=== PATIENT | female | born 1945 | race Caucasian/White ===

== ENCOUNTER 2017-03-01 13:40 | Emergency (ER) | payer MEDICARE, OTHER ==
[2017-03-01 15:22] LABS: ALKALINE PHOSPHATASE 119 U/L (50-136); ALT/SGPT 17 U/L (3.5-33.9); AST/SGOT 28 U/L (7.04-26.96); BILIRUBIN,TOTAL 0.41 mg/dL (0.0-1.0); BLOOD UREA NITROGEN 10 mg/dL (7-18); CALCIUM 9.1 mg/dL (8.7-10.7); CARBON DIOXIDE 24 mmol/L (21-32); CREATININE 0.6 mg/dL (0.6-1.3); GLUCOSE,RANDOM 172 mg/dL (70-99); POTASSIUM 4.2 mmol/L (3.5-5.1); SODIUM 142 mmol/L (136-145)
[2017-03-01 15:37] LABS: HEMATOCRIT 37.7 % (34-45); HEMOGLOBIN 11.9 g/dl (11.2-15.7); MEAN CORPUSCULAR VOLUME 88.9 fl (79-95); RED BLOOD COUNT 4.24 x10_6/ul (3.9-5.2); WHITE BLOOD COUNT 8.6 x10_3/ml (4.0-10.0)
[2017-03-01 15:38] LABS: GRAN # 2.6 10_X3_UL (1.6-6.1); LYMPH # 4.7 10_X3_UL (1.2-3.7); MEAN CORPUSCULAR HEMOGLOBIN 28.1 pg (27.0-33.0); MEAN CORPUSCULAR HGB CONC 31.6 g/dl (32.0-36.0); MIXED # 1.3 10_X3_UL (0-12); PLATELET COUNT 299 x10_3/UL (182-369); RED CELL DISTRIBUTION WIDTH 16.1 % (11.7-14.4)
== END 2017-03-01 16:57 | disposition home or self-care (01) ==
LOC: ER 13:40
PROVIDERS: Emergency Medicine
DX: R53.83 Other fatigue (principal); R53.1 Weakness; R42 Dizziness and giddiness; E11.9 Type 2 diabetes mellitus without complications; I10 Essential (primary) hypertension; M19.90 Unspecified osteoarthritis, unspecified site; Z90.81 Acquired absence of spleen; R25.1 Tremor, unspecified
CPT/HCPCS: 36415; 80053; 85025; 93005; 96360; 99070; 99284; 99284-25